=== PATIENT | female | born 1980 | race Caucasian/White ===

== ENCOUNTER 2019-04-15 19:41 | Emergency (ER) | END 2019-04-15 20:51 | disposition left against medical advice (07) | LOC: ER 19:41 | DX: Z53.21 Procedure and treatment not carried out due to patient leaving prior to being seen by health care provider (principal) ==

== ENCOUNTER 2019-10-01 09:46 | Emergency (ER) | payer SELFPAY ==
[2019-10-01] MEDS ORDERED: ONDANSETRON HCL INJ/PF 4 MG/2 ML SDV IV ONE ×2 (10:01→13:24)
[2019-10-01] MEDS ORDERED: THIAMINE HCL 100 MG, FOLIC ACID 1 MG in NORMAL SALINE 250 ML IV ONE ×2 (10:01→12:00)
[2019-10-01] MEDS ORDERED: NORMAL SALINE 1000 ML 1,000 ML IV ONE (10:01)
[2019-10-01] MEDS ORDERED: LORAZEPAM INJ 2 MG/1 ML VIAL IV ONE (10:01)
--- NOTE | 2019-10-01 10:04 | ER Document Report ---
ED Medical Screen (RME) - General Chief Complaint: Alcohol Withdrawl Stated Complaint: ETOH Time Seen by Provider: 10/01/19 09:55 TRAVEL OUTSIDE OF THE [place] IN LAST 30 DAYS: No - HPI Notes: 10/01/19 10:02 39-year-old female to the emergency department with complaints of needing help with alcohol withdrawal. She states that she is been drinking heavily for about 10 years now. She states that when she stops drinking alcohol she will start to have tremors almost immediately and then she will actually have seizures. She states that she was recently seen at [facility] for seizure after she tried to s top drinking. She states that she drinks pretty much all day long and her choice of alcohol is liquor. She states that she self mutilates but denies any suicidal ideation. She states that she has had something to drink this morning. She states that she is had "2 dippers". I performed a brief medical screening exam on the patient and determined that she will need further management by main side provider. I placed initial orders to help expedite patient's care. On medical screening exam patient is slurring her speech and clinically intoxicated. She has no evidence of tremors but suspect that that is because she has been drinking alcohol this morning. - Related Data Allergies/Adverse Reactions: No Known Allergies Allergy (Unverified 04/15/19 19:48) Physical Exam - Vital signs Vitals: Temp Pulse Resp BP Pulse Ox 97.9 F 94 18 139/90 H 100 10/01/19 09:50 10/01/19 09:50 10/01/19 09:50 10/01/19 09:50 10/01/19 09:50 Course - Vital Signs Vital signs: Temp Pulse Resp BP Pulse Ox 97.9 F 94 18 139/90 H 100 10/01/19 09:50 10/01/19 09:50 10/01/19 09:50 10/01/19 09:50 10/01/19 09:50
[2019-10-01 10:39] LABS: APPEARANCE,URINE CLEAR; BILIRUBIN,URINE NEGATIVE (NEGATIVE); COLOR,URINE YELLOW; GLUCOSE, URINE NEGATIVE (NEGATIVE); KETONES,URINE NEGATIVE (NEGATIVE); LEUKOCYTE ESTERASE,URINE NEGATIVE (NEGATIVE); NITRITE,URINE NEGATIVE (NEGATIVE); PROTEIN,URINE 100 mg/dL (NEGATIVE); URINE SPECIFIC GRAVITY 1.026; UROBILINOGEN,URINE NEGATIVE mg/dL (<2.0)
[2019-10-01 10:40] LABS: ABSOLUTE BASOPHILS # (AUTO) 0.1 10^3/uL (0.0-0.2); ABSOLUTE EOSINOPHILS # (AUTO) 0.1 10^3/uL (0.0-0.6); ABSOLUTE LYMPHOCYTES (AUTO) 1.9 10^3/uL (0.5-4.7); ABSOLUTE MONOCYTES (AUTO) 0.6 10^3/uL (0.1-1.4); ABSOLUTE NEUT (AUTO) 5.2 10^3/uL (1.7-8.2); BASOPHILS % (AUTO) 0.8 % (0-2); EOSINOPHILS % (AUTO) 0.7 % (0-6); HEMATOCRIT 44.4 % (36.0-47.0); HEMOGLOBIN 15.4 g/dL (12.0-15.5); LYMPHOCYTES % (AUTO) 23.9 % (13-45); MEAN CORPUSCULAR HEMOGLOBIN 34.8 pg (27.0-33.4); MEAN CORPUSCULAR HGB CONC 34.7 g/dL (32.0-36.0); MEAN CORPUSCULAR VOLUME 100 fl (80-97); MONOCYTES % (AUTO) 7.9 % (3-13); PLATELET COUNT 284 10^3/uL (150-450); RED BLOOD COUNT 4.43 10^6/uL (3.72-5.28); RED CELL DISTRIBUTION WIDTH 14.9 % (11.5-14.0); SEGMENTED NEUTROPHILS % (AUTO) 66.7 % (42-78); TOTAL CELLS COUNTED % (AUTO) 100 %; WHITE BLOOD COUNT 7.8 10^3/uL (4.0-10.5)
[2019-10-01 10:53] LABS: ACETAMINOPHEN 32 ug/mL (10-30); ALBUMIN 4.5 g/dL (3.5-5.0); ALCOHOL 167 mg/dL (NONE DETECTED); ALKALINE PHOSPHATASE 74 U/L (38-126); ANION GAP 9 (5-19); ASPARTATE AMINO TRANSFERASE 41 U/L (14-36); BILIRUBIN,TOTAL 0.5 mg/dL (0.2-1.3); BLOOD UREA NITROGEN 17 mg/dL (7-20); CALCIUM 9.3 mg/dL (8.4-10.2); CARBON DIOXIDE 27 mmol/L (22-30); CHLORIDE 106 mmol/L (98-107); GLUCOSE 81 mg/dL (75-110); POTASSIUM 4.2 mmol/L (3.6-5.0); TOTAL PROTEIN 7.5 g/dL (6.3-8.2)
[2019-10-01 10:59] LABS: URINE AMPHETAMINES SCREEN NEGATIVE; URINE BARBITURATES SCREEN NEGATIVE; URINE BENZODIAZEPINES SCREEN UNCONFIRMED POSITIVE; URINE COCAINE SCREEN NEGATIVE; URINE MARIJUANA (THC) SCREEN NEGATIVE; URINE METHADONE SCREEN NEGATIVE; URINE PHENCYCLIDINE SCREEN NEGATIVE
[2019-10-01] MEDS ORDERED: FAMOTIDINE INJ/PF 20 MG/2 ML SDV IV ONE (13:24)
--- NOTE | 2019-10-01 13:49 | RADIOLOGY REPORT (SQ) ---
EXAM DESCRIPTION: CHEST SINGLE VIEW COMPLETED DATE/TIME: 10/01/2019 1:37 pm REASON FOR STUDY: alcoholism/ smoker COMPARISON: None. EXAM PARAMETERS: NUMBER OF VIEWS: One view. TECHNIQUE: Single frontal radiographic view of the chest acquired. RADIATION DOSE: NA LIMITATIONS: None. FINDINGS: LUNGS AND PLEURA: No opacities, masses or pneumothorax. No pleural effusion. MEDIASTINUM AND HILAR STRUCTURES: No masses. Contour normal. HEART AND VASCULAR STRUCTURES: Heart normal in size. Normal vasculature. BONES: No acute findings. HARDWARE: None in the chest. OTHER: No other significant finding. IMPRESSION: NO ACUTE RADIOGRAPHIC FINDING IN THE CHEST. TECHNICAL DOCUMENTATION: JOB ID: [id number] [employer]- All Rights Reserved Reading location - IP/workstation name: [email or web address]
[2019-10-01] MEDS ORDERED: CLONIDINE HCL 0.1 MG TABLET PO ONE (14:42)
[2019-10-01] MEDS ORDERED: LORAZEPAM 1 MG TABLET PO ONE (14:43)
[2019-10-01] MEDS ORDERED: RINGERS SOLUTION,LACTATED 1,000 ML IV ONE (14:44)
[2019-10-01] MEDS ORDERED: DEXTROSE 5%-LACTATED RINGERS 1,000 ML IV ONE (14:45)
--- NOTE | 2019-10-01 15:01 | PSYCHOLOGICAL NOTE ---
Psych Note - Psych Note Date seen by psych provider: 10/01/19 Time seen by psych provider: 12:09 - Initial Evaluation Psych Note: Presenting Problem: Patient presented to the ED today for alcohol withdrawal and detox. She reportedly calked the [facility] who recommended she come to the ED due to recent seizure and history of seizures from alcohol withdrawal. Her step grandfather was at bedside. Both identified patient had been at [facility] 2 days ago for similar etiology but had actually had a seizure from not being able to have a drink that morning. She reported drinking since age 15 and in 2004 during her divorce switching to Vodka and increasing usage. She acknowledged her last drink was this morning when she had 2 airplane sized bottles of Smirnoff Vodka "to curb the tremors and not have a seizure." She admitted to drinking from the time she waked up (between [id number]) all through out the day until she blacks out." She denied DTs during withdrawal and noted the following symptoms: night terrors which are common, waking up in cold sweats, needing a drink first thing in the morning to curb shakes and seizures. She stated seizure activity as eyes rolling back, hands and feet cramp then entire body cramps up. She reported having 4 previous detoxes with most recent somewhere between [id number]. She denied any kind of shelter treatment. She denied previous hospitalizations. She reported being diagnosed with Bipolar/Manic Depression. She identified a few years back she was on Cymbalta for 2 years, it didn't work so she got off. She noted she has ruined relationships with family members due to drinking: her 18 year old child lives with patient's mother and the 11 year old lives with his father, mother in [place] kicked her out and father has washed his hands of her. She commented "I don't want to live like this anymore I need help." She ask ed for pain medication due to chronic back pain (said at one point was prescribed Percocet 10s but took self off, uses Oxycodone 7.5s, has a high tolerance to medications) and body pain from it tensing up during seizure. She inquired about food saying she had not eaten since last night and felt sick (breakfast was coming soon). Patient denied SI/HI and was able to engage in evaluation, there was no observed psychosis. Attending Nurse stated patient reported medications for Acid Reflux and Topomax. Patient agreed to voluntary detox linkage while she was in ED getting fluids and other alcohol withdrawal maintenance. Step grandfather agreed to provide transportation to voluntary detox. [facility] team Mailroom Coordinator made voluntary detox placement referrals. [facility] has a bed available tomorrow (10/02/2019) morning. Obtained [facility] detox application, helped patient fill it out and it was faxed to [facility]. Diagnosis: Alcohol Withdrawal Desire for Detox Medication recommendations made by the psychiatric medication provider, Dr. Nora MD., includes: CIWA AR Protocol Add Thiamine 100MG PO or IV x1 Stat and Daily Add Folate 1MG PO Daily Add Multi-Vitamine PO Daily CIWA AR >8 or Moderate Risk Add Ativan 1-2MG PO or IV x1 Stat Add Ativan 2-4MG PO or IV x1 Stat Add Ativan 1MG or 2MG PO or IV every 4-6 hours scheduled Add ativan 1MG or 2MG PO or IV every 2 hours as needed CIWA AR >15 or High Risk Add Ativan 2-4MG IV every 15 minutes until stable then same dose every 2-3 hours scheduled Impression/Plan: Patient is cleared from acute psychiatric services. Patient's chief complaint was alcohol withdrawal and desire for detox. She denied SI/HI, engaged in evaluation anf did not appear to be responding to internal stimuli. [facility] ED [facility] team made referral to voluntary detoxification placement at [facility] with patient's verbal permission. Bed available tomorrow (10/02/2019) morning. Step grandfather at bedside said he could provide transportation. [facility] ED [facility] team and attending ED Physician agreed patient should be held overnight for monitoring and observation given need for medical detox, severity of withdrawal symptoms to include seizures and bed availability in AM. Consulted with Dr. Arroyo regarding the management and care of patient. ED Physician in agreement with recommendations.
[2019-10-01] MEDS ORDERED: LORAZEPAM 1 MG TABLET PO PRN (16:41)
--- NOTE | 2019-10-01 17:11 | ER Document Report ---
Entered by PATTI CONNELL SCRIBE 10/01/19 1327 Acting as scribe for:BARRETT BLANCO MD ED Substance Abuse / Acc. OD - General Chief Complaint: Alcohol Withdrawl Stated Complaint: ETOH Time Seen by Provider: 10/01/19 09:55 Mode of Arrival: Medic Information source: Patient Notes: This 39 year old female patient presents to the emergency department today requesting help with EtOH detox. Patient states that she has been drinking heavily for approximately 10 years. Patient states that she has tried outpatient detox in the past and it was "not for her", she is specifically requesting "inpatient detox". Patient states she drank two airplane bottles of vodka prior to arrival today. Patient denies a history of hallucinations. Patient states that she has had withdrawal seizures in the past, but no history of epilepsy. TRAVEL OUTSIDE OF THE [place] IN LAST 30 DAYS: No - Related Data Allergies/Adverse Reactions: No Known Allergies Allergy (Unverified 04/15/19 19:48) Home Medications: prilosec and topamax Past Medical History - General Information source: Patient - Social History Smoking Status: Current Every Day Smoker Cigarette use (# per day): Yes Frequency of alcohol use: Heavy Drug Abuse: None Lives with: Family Family History: Reviewed & Not Pertinent Patient has suicidal ideation: No Patient has homicidal ideation: No Neurological Medical History: Reports: Hx Seizures - only from EtOH withdrawal, no epilepsy Malignancy Medical History: Reports: Hx Cervical Cancer GI Medical History: Reports: Hx Gastroesophageal Reflux Disease Past Surgical History: Reports: Hx Hysterectomy Review of Systems - Review of Systems Constitutional: See HPI, Other - requesting help with EtOH abuse EENT: No symptoms reported Cardiovascular: No symptoms reported Respiratory: No symptoms reported Gastrointestinal: No symptoms reported Genitourinary: No symptoms reported Female Genitourinary: No symptoms reported Musculoskeletal: No symptoms reported Skin: No symptoms reported Hematologic/Lymphatic: No symptoms reported Neurological/Psychological: denies: Homicidal ideation, Suicidal ideation -: Yes All other systems reviewed and negative Physical Exam - Vital signs Vitals: Temp Pulse Resp BP Pulse Ox 97.9 F 94 18 139/90 H 100 10/01/19 09:50 10/01/19 09:50 10/01/19 09:50 10/01/19 09:50 10/01/19 09:50 - Notes Notes: Physical Exam: General: Alert, appears well. HEENT: Normocephalic. Atraumatic. PERRL. Extraocular movements intact. Oropharynx clear. Neck: Supple. Non-tender. Respiratory: No respiratory distress. Clear and equal breath sounds bilaterally. Cardiovascular: Regular rate and rhythm. Abdominal: Normal Inspection. Non-tender. No distension. Normal Bowel Sounds. Back: No gross abnormalities. Extremities: Moves all four extremities. Upper extremities: Normal inspection. Normal ROM. Lower extremities: Normal inspection. No edema. Normal ROM. Neurological: Normal cognition. AAOx4. Normal speech. Psychological: Normal affect. Normal Mood. Skin: Warm. Dry. Normal color. Course - Re-evaluation Re-evalutation: 10/01/19 17:08 Patient is medically cleared for disposition to either inpatient or outpatient alcohol treatment program. - Vital Signs Vital signs: Temp Pulse Resp BP Pulse Ox 97.9 F 82 19 132/96 H 97 10/01/19 09:50 10/01/19 13:01 10/01/19 16:01 10/01/19 16:01 10/01/19 16:01 - Laboratory Result Diagrams: 10/01/19 10:15 10/01/19 10:15 Laboratory results interpreted by me: 10/01/19 10/01/19 10/01/19 10:15 10:15 10:15 MCV 100 H MCH 34.8 H RDW 14.9 H Creatinine 0.51 L AST 41 H Urine Protein 100 H Acetaminophen 32 H 10/01/19 16:50 Alcohol was 167. Repeat alcohol in a.m. - Diagnostic Test Radiology reviewed: Image reviewed, Reports reviewed Radiology results interpreted by me: 10/01/19 17:09 Chest x-ray shows no acute process. - EKG Interpretation by Me Additional EKG results interpreted by me: 10/01/19 17:03 EKG time 1351 shows normal sinus rhythm rate of 76 borderline T wave abnorm alities in the anterior lateral leads otherwise no acute ST T wave changes. Discharge - Discharge Clinical Impression: Chronic alcoholism, Alcohol withdrawal delirium Acute alcohol intoxication Qualifiers: Complication of substance-induced condition: with unspecified complication Qualified Code(s): F10.929 - Alcohol use, unspecified with intoxication, u nspecified Hypertension Qualifiers: Hypertension type: essential hypertension Qualified Code(s): I10 - Essential (primary) hypertension Condition: Stable Disposition: PSYCH HOSP/UNIT I personally performed the services described in the documentation, reviewed and edited the documentation which was dictated to the scribe in my presence, and it accurately records my words and actions.
[2019-10-01] MEDS ORDERED: CLONIDINE HCL 0.1 MG TABLET PO SCH (21:00)
--- NOTE | 2019-10-01 23:26 | EKG REPORT ---
SEVERITY:- BORDERLINE ECG - SINUS RHYTHM BORDERLINE T ABNORMALITIES, ANT-LAT LEADS : Confirmed by: Angelica Gee 01-Oct-2019 23:25:56
[2019-10-02] MEDS ORDERED: CLONIDINE 0.2 MG/24 HR PATCH.TDWK TD ONE (01:16)
[2019-10-02] MEDS ORDERED: CLONIDINE 0.2 MG/24 HR PATCH.TDWK ONE (01:26)
[2019-10-02] MEDS ORDERED: LORAZEPAM 1 MG TABLET PO PRN (02:35)
[2019-10-02] MEDS ORDERED: CLONIDINE 0.3 MG/24 HR PATCH.TDWK TD ONE (03:32)
[2019-10-02] MEDS ORDERED: KETOROLAC TROMETHAMINE INJ/PF 30 MG/1 ML SDV IV ONE (03:34)
[2019-10-02] MEDS ORDERED: CLONIDINE 0.3 MG/24 HR PATCH.TDWK ONE (04:05)
[2019-10-02] MEDS ORDERED: PANTOPRAZOLE SODIUM 40 MG TABLET.DR PO SCH (06:00)
[2019-10-02] MEDS ORDERED: HYDRALAZINE HCL INJ/PF 20 MG/1 ML SDV IV ONE (06:17)
[2019-10-02] MEDS ORDERED: THIAMINE HCL 100 MG TABLET PO SCH (10:00)
[2019-10-02] MEDS ORDERED: FOLIC ACID 1 MG TABLET PO SCH (10:00)
[2019-10-02] MEDS ORDERED: MULTIVITAMIN TABLET PO SCH (10:00)
[2019-10-02] MEDS: LORAZEPAM INJ 2 MG/1 ML VIAL IV PRN ×2 (10:24→13:25)
[2019-10-02] MEDS ORDERED: OXYCODONE-ACETAMINOPHEN 5-325 MG TABLET PO ONE (12:49)
[2019-10-02 14:41] VITALS: BP 149/90
== END 2019-10-02 14:41 ==
LOC: ER 09:46
DX: F10.231 Alcohol dependence with withdrawal delirium (principal); I10 Essential (primary) hypertension; F17.210 Nicotine dependence, cigarettes, uncomplicated
CPT/HCPCS: 93005; 96376; 99285; 96361; 96375; 96365; 36415; 80307 ×4; 85025; 80053; 81001; 71045; 93010; J3490 ×4; J0360; J1885; J2060 ×2; J3411; J2405; J7121; J7030; J7050; S0028

== ENCOUNTER 2019-10-27 02:54 | Emergency (ER) | payer SELFPAY ==
[2019-10-27] MEDS ORDERED: ONDANSETRON HCL INJ/PF 4 MG/2 ML SDV IV ONE (02:58)
[2019-10-27 03:16] VITALS: BP 130/94
[2019-10-27 03:22] LABS: ABSOLUTE BASOPHILS # (AUTO) 0.1 10^3/uL (0.0-0.2); ABSOLUTE LYMPHOCYTES (AUTO) 1.5 10^3/uL (0.5-4.7); ABSOLUTE MONOCYTES (AUTO) 0.2 10^3/uL (0.1-1.4); ABSOLUTE NEUT (AUTO) 6.1 10^3/uL (1.7-8.2); BASOPHILS % (AUTO) 1.2 % (0-2); EOSINOPHILS % (AUTO) 0.2 % (0-6); HEMATOCRIT 49.4 % (36.0-47.0); HEMOGLOBIN 17.4 g/dL (12.0-15.5); LYMPHOCYTES % (AUTO) 18.9 % (13-45); MEAN CORPUSCULAR HEMOGLOBIN 34.5 pg (27.0-33.4); MEAN CORPUSCULAR HGB CONC 35.3 g/dL (32.0-36.0); MEAN CORPUSCULAR VOLUME 98 fl (80-97); MONOCYTES % (AUTO) 2.4 % (3-13); PLATELET COUNT 311 10^3/uL (150-450); RED BLOOD COUNT 5.05 10^6/uL (3.72-5.28); SEGMENTED NEUTROPHILS % (AUTO) 77.3 % (42-78); TOTAL CELLS COUNTED % (AUTO) 100 %; WHITE BLOOD COUNT 7.8 10^3/uL (4.0-10.5)
[2019-10-27 03:35] LABS: ALBUMIN 4.4 g/dL (3.5-5.0); ALKALINE PHOSPHATASE 93 U/L (38-126); ANION GAP 12 (5-19); ASPARTATE AMINO TRANSFERASE 33 U/L (14-36); BILIRUBIN,TOTAL 0.3 mg/dL (0.2-1.3); BLOOD UREA NITROGEN 7 mg/dL (7-20); CALCIUM 8.9 mg/dL (8.4-10.2); CARBON DIOXIDE 26 mmol/L (22-30); CHLORIDE 104 mmol/L (98-107); GLUCOSE 142 mg/dL (75-110); POTASSIUM 3.7 mmol/L (3.6-5.0); TOTAL PROTEIN 7.5 g/dL (6.3-8.2)
== END 2019-10-27 06:00 | disposition left against medical advice (07) ==
LOC: ER 02:54
DX: Z53.21 Procedure and treatment not carried out due to patient leaving prior to being seen by health care provider (principal)
CPT/HCPCS: 96374; 36415; 85025; 80053; J2405